=== PATIENT | male | born 2000 | race Two or more races ===

== ENCOUNTER 2021-06-07 14:58 | Emergency (ER) | payer MEDICAID, OTHER ==
[~2021-06-07] VITALS: Ht 172.7 cm; Wt 68.0 kg
[2021-06-07 15:20] VITALS: BP 127/77
[2021-06-07] MEDS ORDERED: LIDOCAINE 1% HCL (LOCAL ANESTH.) INJ 20ML MDV ONE (16:47)
[2021-06-07] MEDS ORDERED: NAPR500T31 PO (17:08)
[2021-06-07] MEDS ORDERED: AMOX500T86 PO (17:08)
== END 2021-06-07 17:26 | disposition home or self-care (01) ==
LOC: ER 14:58
DX: S61.213A Laceration without foreign body of left middle finger without damage to nail, initial encounter (principal); S41.152A Open bite of left upper arm, initial encounter; Z79.2 Long term (current) use of antibiotics; Z79.899 Other long term (current) drug therapy; W54.0XXA Bitten by dog, initial encounter; Y93.89 Activity, other specified; Y92.89 Other specified places as the place of occurrence of the external cause; Y99.8 Other external cause status
CPT/HCPCS: 12001; 99283; J2001